=== PATIENT | female | born 1990 | race Caucasian/White ===

== ENCOUNTER 2020-04-26 17:38 | Inpatient (IN) ==
[2020-04-26 18:20] VITALS: O2SAT 99
[2020-04-26 18:34] LABS: Basophils # (auto) 0.02 K/uL (0-0.2); Basophils % (auto) 0.3 %; Eosinophils # (auto) 0.09 K/uL (0-0.5); Eosinophils % (auto) 1.4 %; Hematocrit (blood only) 40.7 % (37-47); Hemoglobin 13.6 g/dL (12.0-16.0); Immature Granulocytes # (auto) 0.01 K/uL (0.00-0.02); Immature Granulocytes % (auto) 0.2 %; Lymphocytes # (auto) 1.85 K/uL (1.2-3.4); Lymphocytes % (auto) 28.7 %; Mean Corpuscular Hgb Conc 33.4 g/dL (32-36); Mean Corpuscular Volume 89.6 fL (80-100); Mean Platelet Volume 10.6 fL (7.4-10.4); Monocytes # (auto) 0.35 K/uL (0.11-0.59); Monocytes % (auto) 5.4 %; Neutrophils # (auto) 4.12 K/uL (1.4-6.5); Platelet Count 206 K/uL (130-400); RDW Coefficient of Variation 12.5 % (11.5-14.5); Red Blood Count 4.54 M/uL (4.2-5.4); White Blood Count 6.44 K/uL (4.8-10.8)
[2020-04-26 18:59] LABS: Albumin Level 3.9 gm/dl (3.4-5.0); Calcium 8.9 mg/dl (8.5-10.1); Est GFR (African American) 92.1; Est GFR (Non-African American) 79.5; Potassium 3.7 mmol/L (3.5-5.1)
[2020-04-26 19:08] LABS: Acetaminophen < 2 ug/ml (10-30); Salicylate < 1.7 mg/dl (2.8-20)
[2020-04-26 19:09] LABS: Albumin Globulin Ratio 1.1 (0.9-2); Bilirubin,Total 1.7 mg/dl (0.2-1); Globulin 3.6 gm/dl (2.5-4.0); Thyroid Stimulating Hormone 0.3 uIu/ml (0.300-4.500); Total Protein 7.5 gm/dl (6.4-8.2)
[2020-04-26 19:32] LABS: Appearance Urine Cloudy (Clear); Bacteria Urine Automated 1+ (Negative); Blood Urine Negative (Negative); Color Urine Dark Yellow; Epithelial Cell Urine Auto >30 /lpf (0-5); Glucose Urine UA Negative (Negative); Ketones Urine 2+ (Negative); Leukocyte Esterase Urine 2+ (Negative); Nitrite Urine Negative (Negative); Protein Urine Trace (Negative); RBC Urine Automated >30 /hpf (0-4); Specific Gravity Urine 1.034 (1.000-1.030); Urobilinogen Urine Negative (Negative)
[2020-04-26 19:38] LABS: Bilirubin Urine 1+ (Negative)
--- NOTE | 2020-04-26 19:43 | Emergency Department Note ---
History of Present Illness General Chief complaint: Mental Health Evaluation Stated complaint: MHID Time Seen by Provider: 04/26/20 18:11 History of Present Illness Provider complaint: Mental health evaluation Onset (ago): day(s) 1 29-year-old female presents emergency department for mental health evaluation. Patient states she got into a verbal argument with her girlfriend today and then her girlfriend called the authorities concerned about her wellbeing. Patient denies any physical abuse/assault or sexual abuse/assault. She states that her girlfriend called the police and she was "fake crying". Patient denies any suicidal or homicidal ideation. She states she does not know why her girlfriend called the police on her. She denies any difficulty sleeping, loss of interest, changes in energy level, changes in concentration, or changes in the appetite. She does report yelling guilty about being in a relationship with this girlfriend. She has reported history of bipolar depression anxiety which she is on Lamictal and Lexapro for and she states she has not missed any doses. Home Medications Home Medications Medication Instructions Recorded Confirmed Type escitalopram oxalate 20 mg PO DAILY 04/26/20 04/26/20 History lamotrigine 100 mg PO DAILY 04/26/20 04/26/20 History Allergies Allergy/AdvReac Type Severity Reaction Status Date / Time No Known Allergies Allergy Unverified 04/26/20 18:41 Past Med/Surg History Medical History (Updated 04/27/20 @ 01:10 by Donis Sutton) Anxiety Bipolar depression No pertinent family history Surgical History (Updated 04/26/20 @ 19:43 by Donis Sutton) No pertinent past surgical history Social History Smoking Status: Current every day smoker Feels Safe at Home: Yes Review of Systems A total of 10 systems reviewed and were otherwise negative Physical Exam Vital Signs Vital Signs - 24 hr 04/26/20 18:06 04/26/20 20:54 Temperature 37 C Temperature Source Oral Pulse Rate 101 H Pulse Rate [Right Finger] 101 H 88 Respiratory Rate 18 20 Respiratory Effort / Characteristics Non-Labored Spontaneous Non-Labored Respiratory Depth Normal Normal Respiratory Pattern Regular Blood Pressure 158/91 H Blood Pressure [Right Arm] 158/91 H 140/85 Blood Pressure Mean 113 Blood Pressure Mean [Right Arm] 113 103 Pulse Oximetry 99 99 Oxygen Delivery Method Room Air Room Air Sepsis Recent Fever Within 48 Hours No Sepsis New/Unexplained Change in Mental Status No Sepsis Action Taken by Nursing No Action Required Physical Exam GENERAL: She is oriented to person, place, and time. She appears well-developed and well-nourished. She does not appear distressed. HENT: Exam performed. -Head: Normocephalic and atraumatic. -Right Ear: External ear normal. No mastoid tenderness. -Left Ear: External ear normal. No mastoid tenderness. -Mouth/Throat: The oropharynx is clear and moist. No trismus in the jaw. No dental abscesses or uvula swelling. No oropharyngeal exudate or tonsillar abscesses. EYES: Conjunctivae and EOM are normal. Pupils are equal, round, and reactive to light. Right eye exhibits no discharge. Left eye exhibits no discharge. No scleral icterus. NECK: Normal range of motion. Neck supple. No JVD present. No spinous process tenderness present. No carotid bruit present. No rigidity. No tracheal deviation and normal range of motion present. No Brudzinski's sign and no Kernig's sign noted. CV: Normal rate, regular rhythm, normal heart sounds and intact distal pulses. There is no peripheral edema. Palpable radial pulses bue. PULM/CHEST: Effort normal and breath sounds normal. No respiratory distress. No stridor. She has no wheezes. She has no rales. -Chest Wall: She exhibits no tenderness. ABD: The abdomen is soft. Bowel sounds are normal. She has no distension. No mass is present. There is no tenderness. There is no rebound, no guarding, no Paz's sign and no tenderness at McBurney's point. Rovsig negative MUSC/SKEL: Normal range of motion. There is no peripheral edema, tenderness or deformity. LYMPH: No cervical adenopathy. NEURO: She is alert and oriented to person, place, and time. She has normal strength. No cranial nerve deficit or sensory deficit. Coordination and gait normal. GCS eye subscore is 4. GCS verbal subscore is 5. GCS motor subscore is 6. Cerebellar tests wnl. SKIN: Skin is warm and dry. She is not diaphoretic. PSYCH: She has a normal mood and affect. Behavior is normal. Judgment and thought content normal. Course Course 183: The patient was evaluated in room A7. A complete history and physical exam was performed. 2020: Vital signs stable. Patient medically cleared. Psychiatric hydraulic technician Sophia was able to obtain the text messages that the patient sent to the girlfriend and they are quite alarming talking about killing herself. Patient does have a history of previous suicide attempt by trying to shoot herself to . Based off of this information that was not provided by the patient initially, both psychiatric casework and I recommend that the patient seek inpatient treatment. Patient placed in observation at this time as bed search is being conducted. Medical Decision Making Laboratory Data Result diagrams: 04/26/20 18:19 04/26/20 18:19 Lab Results 04/26/20 04/26/20 04/26/20 Range/Units 18:19 18:19 18:19 WBC 6.44 (4.8-10.8) K/uL RBC 4.54 (4.2-5.4) M/uL Hgb 13.6 (12.0-16.0) g/dL Hct 40.7 (37-47) % MCV 89.6 (80-100) fL MCH 30.0 (25-34) pg MCHC 33.4 (32-36) g/dL RDW Std Deviation 41.0 (36.4-46.3) fL RDW Coeff of Mariela 12.5 (11.5-14.5) % Plt Count 206 (130-400) K/uL MPV 10.6 H (7.4-10.4) fL Immature Gran % (Auto) 0.2 % Neut % (Auto) 64.0 % Lymph % (Auto) 28.7 % Bath % (Auto) 5.4 % Eos % (Auto) 1.4 % Baso % (Auto) 0.3 % Neut # (Auto) 4.12 (1.4-6.5) K/uL Lymph # (Auto) 1.85 (1.2-3.4) K/uL Bath # (Auto) 0.35 (0.11-0.59) K/uL Eos # (Auto) 0.09 (0-0.5) K/uL Baso # (Auto) 0.02 (0-0.2) K/uL Immature Gran # (Auto) 0.01 (0.00-0.02) K/uL Sodium 138 (136-145) mmol/L Potassium 3.7 (3.5-5.1) mmol/L Chloride 106 (98-107) mmol/L Carbon Dioxide 27 (21-32) mmol/L Anion Gap 5.0 (3-11) BUN 9 (7-18) mg/dl Creatinine 0.97 (0.6-1.2) mg/dl Est Cr Clr Drug Dosing 68.0 ml/min Est GFR ( Amer) 92.1 Est GFR (Non-Af Amer) 79.5 BUN/Creatinine Ratio 9.0 L (10-20) Glucose 135 H (70-99) mg/dl Calcium 8.9 (8.5-10.1) mg/dl Total Bilirubin 1.7 H (0.2-1) mg/dl AST 15 (15-37) U/L ALT 17 (12-78) U/L Alkaline Phosphatase 43 L (45-117) U/L Total Protein 7.5 (6.4-8.2) gm/dl Albumin 3.9 (3.4-5.0) gm/dl Globulin 3.6 (2.5-4.0) gm/dl Albumin/Globulin Ratio 1.1 (0.9-2) TSH 0.300 (0.300-4.500) uIu/ml Urine Color Urine Appearance (Clear) Urine pH (4.5-7.5) Ur Specific [place] (1.000-1.030) Urine Protein (Negative) Urine Glucose (UA) (Negative) Urine Ketones (Negative) Urine Blood (Negative) Urine Nitrite (Negative) Urine Bilirubin (Negative) Urine Urobilinogen (Negative) Ur Leukocyte Esterase (Negative) Urine WBC (Auto) (0-5) /hpf Urine RBC (Auto) (0-4) /hpf U Hyaline Cast (Auto) (0-5) /lpf U Epithel Cells (Auto) (0-5) /lpf Urine Bacteria (Auto) (Negative) Ur Renal Epithelial Cell (0-5) /lpf Urine Mucus (None Prsent) Urine Test (Negative) Salicylates < 1.7 L (2.8-20) mg/dl Urine Opiates Screen (Neg) Ur Methadone, Qual (Neg) Acetaminophen < 2 L (10-30) ug/ml Urine Barbiturates (Neg) Ur Phencyclidine (PCP) (Neg) U Amphetamin/Meth Scrn (Neg) MDMA (Ecstasy) Screen (Neg) U Benzodiazepines Scrn (Neg) Ur Cocaine Metabolite (Neg) U Marijuana (THC) Screen (Neg) Ethyl Alcohol mg/dL (0-3) mg/dl 04/26/20 04/26/20 04/26/20 Range/Units 18:19 19:14 19:14 WBC (4.8-10.8) K/uL RBC (4.2-5.4) M/uL Hgb (12.0-16.0) g/dL Hct (37-47) % MCV (80-100) fL MCH (25-34) pg MCHC (32-36) g/dL RDW Std Deviation (36.4-46.3) fL RDW Coeff of Mariela (11.5-14.5) % Plt Count (130-400) K/uL MPV (7.4-10.4) fL Immature Gran % (Auto) % Neut % (Auto) % Lymph % (Auto) % Bath % (Auto) % Eos % (Auto) % Baso % (Auto) % Neut # (Auto) (1.4-6.5) K/uL Lymph # (Auto) (1.2-3.4) K/uL Bath # (Auto) (0.11-0.59) K/uL Eos # (Auto) (0-0.5) K/uL Baso # (Auto) (0-0.2) K/uL Immature Gran # (Auto) (0.00-0.02) K/uL Sodium (136-145) mmol/L Potassium (3.5-5.1) mmol/L Chloride (98-107) mmol/L Carbon Dioxide (21-32) mmol/L Anion Gap (3-11) BUN (7-18) mg/dl Creatinine (0.6-1.2) mg/dl Est Cr Clr Drug Dosing ml/min Est GFR ( Amer) Est GFR (Non-Af Amer) BUN/Creatinine Ratio (10-20) Glucose (70-99) mg/dl Calcium (8.5-10.1) mg/dl Total Bilirubin (0.2-1) mg/dl AST (15-37) U/L ALT (12-78) U/L Alkaline Phosphatase (45-117) U/L Total Protein (6.4-8.2) gm/dl Albumin (3.4-5.0) gm/dl Globulin (2.5-4.0) gm/dl Albumin/Globulin Ratio (0.9-2) TSH (0.300-4.500) uIu/ml Urine Color Dark Yellow Urine Appearance Cloudy A (Clear) Urine pH 5.0 (4.5-7.5) Ur Specific [place] 1.034 H (1.000-1.030) Urine Protein Trace H (Negative) Urine Glucose (UA) Negative (Negative) Urine Ketones 2+ H (Negative) Urine Blood Negative (Negative) Urine Nitrite Negative (Negative) Urine Bilirubin 1+ H (Negative) Urine Urobilinogen Negative (Negative) Ur Leukocyte Esterase 2+ H (Negative) Urine WBC (Auto) 5-10 H (0-5) /hpf Urine RBC (Auto) >30 H (0-4) /hpf U Hyaline Cast (Auto) 0 (0-5) /lpf U Epithel Cells (Auto) >30 H (0-5) /lpf Urine Bacteria (Auto) 1+ H (Negative) Ur Renal Epithelial Cell 0-5 (0-5) /lpf Urine Mucus Present A (None Prsent) Urine Test (Negative) Salicylates (2.8-20) mg/dl Urine Opiates Screen Neg (Neg) Ur Methadone, Qual Neg (Neg) Acetaminophen (10-30) ug/ml Urine Barbiturates Neg (Neg) Ur Phencyclidine (PCP) Neg (Neg) U Amphetamin/Meth Scrn Pos H (Neg) MDMA (Ecstasy) Screen Pos H (Neg) U Benzodiazepines Scrn Neg (Neg) Ur Cocaine Metabolite Neg (Neg) U Marijuana (THC) Screen Pos H (Neg) Ethyl Alcohol mg/dL < 3.0 (0-3) mg/dl 04/26/20 Range/Units 19:14 WBC (4.8-10.8) K/uL RBC (4.2-5.4) M/uL Hgb (12.0-16.0) g/dL Hct (37-47) % MCV (80-100) fL MCH (25-34) pg MCHC (32-36) g/dL RDW Std Deviation (36.4-46.3) fL RDW Coeff of Mariela (11.5-14.5) % Plt Count (130-400) K/uL MPV (7.4-10.4) fL Immature Gran % (Auto) % Neut % (Auto) % Lymph % (Auto) % Bath % (Auto) % Eos % (Auto) % Baso % (Auto) % Neut # (Auto) (1.4-6.5) K/uL Lymph # (Auto) (1.2-3.4) K/uL Bath # (Auto) (0.11-0.59) K/uL Eos # (Auto) (0-0.5) K/uL Baso # (Auto) (0-0.2) K/uL Immature Gran # (Auto) (0.00-0.02) K/uL Sodium (136-145) mmol/L Potassium (3.5-5.1) mmol/L Chloride (98-107) mmol/L Carbon Dioxide (21-32) mmol/L Anion Gap (3-11) BUN (7-18) mg/dl Creatinine (0.6-1.2) mg/dl Est Cr Clr Drug Dosing ml/min Est GFR ( Amer) Est GFR (Non-Af Amer) BUN/Creatinine Ratio (10-20) Glucose (70-99) mg/dl Calcium (8.5-10.1) mg/dl Total Bilirubin (0.2-1) mg/dl AST (15-37) U/L ALT (12-78) U/L Alkaline Phosphatase (45-117) U/L Total Protein (6.4-8.2) gm/dl Albumin (3.4-5.0) gm/dl Globulin (2.5-4.0) gm/dl Albumin/Globulin Ratio (0.9-2) TSH (0.300-4.500) uIu/ml Urine Color Urine Appearance (Clear) Urine pH (4.5-7.5) Ur Specific [place] (1.000-1.030) Urine Protein (Negative) Urine Glucose (UA) (Negative) Urine Ketones (Negative) Urine Blood (Negative) Urine Nitrite (Negative) Urine Bilirubin (Negative) Urine Urobilinogen (Negative) Ur Leukocyte Esterase (Negative) Urine WBC (Auto) (0-5) /hpf Urine RBC (Auto) (0-4) /hpf U Hyaline Cast (Auto) (0-5) /lpf U Epithel Cells (Auto) (0-5) /lpf Urine Bacteria (Auto) (Negative) Ur Renal Epithelial Cell (0-5) /lpf Urine Mucus (None Prsent) Urine Test Negative (Negative) Salicylates (2.8-20) mg/dl Urine Opiates Screen (Neg) Ur Methadone, Qual (Neg) Acetaminophen (10-30) ug/ml Urine Barbiturates (Neg) Ur Phencyclidine (PCP) (Neg) U Amphetamin/Meth Scrn (Neg) MDMA (Ecstasy) Screen (Neg) U Benzodiazepines Scrn (Neg) Ur Cocaine Metabolite (Neg) U Marijuana (THC) Screen (Neg) Ethyl Alcohol mg/dL (0-3) mg/dl MDM Narrative Observation note Indication: Psych eval/placement Patient, with bipolar disorder with depression, anxiety was first seen at 1830 hrs and the observation time began at 2019 and was necessary in order to have psych evaluation completed . Upon re-evaluation, 4 hours 48 minutes of observation revealed that the patient should be admitted to inpatient psychiatry. Disposition date and time April 27 2020 010. Impression & Plan Bipolar depression, Suicidal ideation Discharge Plan Visit Data Chief Complaint: Mental Health Evaluation Stated Complaint: MHID ED Provider: Donis Sutton Discharge Problem: Bipolar depression, Suicidal ideation Patient Disposition: Admitted As Inpatient Forms Stand Alone Forms: [facility], Suicide Prevention Resources Prescriptions Prescriptions: No Action escitalopram oxalate 20 mg PO DAILY RF: 0 lamotrigine 100 mg PO DAILY RF: 0 Referrals Referrals: PCP,NO [Primary Care Provider] -
[2020-04-26 19:52] LABS: Cast Urine Automated 0 /lpf (0-5); Mucus Urine Present (None Prsent); Renal Epithelial Cells Urine 0-5 /lpf (0-5)
[2020-04-26 20:26] LABS: Amphetamines+Metham, Urine Pos (Neg); Barbiturates, Urine Neg (Neg); Benzodiazepine, Urine Neg (Neg); Cocaine, Urine Neg (Neg); MDMA (Ecstacy), Urine Pos (Neg); Methadone, Urine Neg (Neg); Opiate, Urine Neg (Neg); Phencyclidine, Urine Neg (Neg)
[2020-04-26 23:58] LABS: Pregnancy Test, Urine Negative (Negative)
[2020-04-27] MEDS ORDERED: SODIUM CHLORIDE 0.65% NA SOLN 45 ML (OCEAN) PRN (00:51)
[2020-04-27] MEDS ORDERED: ALUMINUM/MAGNESIUM SUSP 30 ML UDC PO PRN (00:51)
[2020-04-27] MEDS ORDERED: ACETAMINOPHEN 325 MG TAB PO PRN (00:51)
[2020-04-27] MEDS ORDERED: BISMUTH SUBSALICYLATE PER ML OMNICELL CHARGE PO PRN (00:51)
[2020-04-27] MEDS ORDERED: MAGNESIUM HYDROXIDE SUSP 30 ML UDC PO PRN (00:51)
[2020-04-27] MEDS: ESCITALOPRAM OXALATE 20 MG TAB PO SCH (10:29)
[2020-04-27] MEDS: lamoTRIgine 100 MG TAB PO SCH (10:29)
[2020-04-27] MEDS: NICOTINE 21 MG/24 HR TDSY TD SCH (14:51)
--- NOTE | 2020-04-27 16:16 | History & Physical ---
Date of Service April 27, 2020 Impression / Recommendations Impression The patient is a 29-year-old woman who has a long history of mood alterations. Her current outpatient diagnosis is bipolar disorder. She does not give a particularly strong history of manic or hypomanic episodes, but she does report that she often has difficulty regulating her mood, particularly when under stress. The history is more suggestive of discrete depressive episodes, possibly complicated by borderline personality traits. The patient made direct threats of suicide yesterday in the form of text messages that we have been able to review through screen captures. The patient acknowledges that she had made these threats, but says that she made them only as a function of a combination of her disappointment and hurt about being rejected by her former girlfriend, and, also, because she was angry. Complicating the clinical picture is the fact that the patient did make a very serious suicide attempt in 2010 by shooting herself in the chest. That attempt was related to a romantic disappointment, a nd the fact of the serious suicide attempt under similar circumstances, combined as it was with a written threat of suicide indicates that, till she can be more fully assessed, inpatient psychiatric hospitalization remains the least intensive, least restrictive level of care consistent with the patient's safety and clinical needs. The patient, herself, while not happy about being in the hospital, acknowledges that our concern is entirely reasonable. She will be continued on her outpatient psychiatric medications. The patient agrees that she will work on improving her individual coping strategies during what we expect will be a brief psychiatric hospitalization, with an emphasis on finding better ways to communicate hurt, disappointment, and anger and than making what she now is claiming more disingenuous threats of suicide. The patient's mother is currently planning to drive to [place] on Thursday and, if the patient's condition remains stable and she continues to be free of reported suicidal thoughts, and if her affect remains euthymic. The plan will be to discharge the patient on Thursday (day 3 of the hospitalization) under the care of her mother who will assist her in getting back to her family in [facility]. (1) Bipolar depression: 04/27 -The patient has been admitted to the [facility] inpatient psychiatric behavioral health unit at [facility]. She is being monitored on suicide precautions and close observations. -She has been referred to and is actively in group, activity, and family interventions. Her primary goal in treatment at the current time is to acquire improved skills for expressing anger, disappointment, and hurt when feeling rejected, abandoned, or not well treated. She acknowledges that threatening suicide under such circumstances may be "an easy thing to do," but that it is a behavior that can understandably unjustifiably because alarm and other persons, particularly within the context of her history of having made a very serious suicide attempt by shooting herself in the chest 9 years ago. -We are continuing the patient's outpatient psychiatric medications, namely partida otrigine 100 mg daily and Lexapro 20 mg daily. The patient reports that she tolerates these medications well and feels that they help her substantially with her effort to keep her mood stable and free of depression. Present on Admission?: Yes (2) Suicidal ideation: 04/27 -The patient does note that she sometimes has fleeting suicidal thoughts that occur when she is feeling under stress, for example when feeling mistreated, when feeling abandoned, or when feeling rejected. However, she has been consistently denying any actual suicidal plan or intent since arriving in the [facility] emergency department. -Particular caution is being exercised in this case because the patient has a history of having made a very serious suicide attempt. Specifically, in 2010, under somewhat similar circumstances to the current situation, she shot herself in the chest (admittedly with a certain amount of ambivalence) following a romantic disappointment. -We will continue to monitor the patient for suicidality, with particular emphasis and observing affect and appropriate participation in therapies. The patient is currently iam for safety on the unit. Inventory Assets Strengths: Her condition. Commitment to ongoing psychiatric treatment. Medication adherence. Strongly supportive family. Needs: Improved individual coping strategies. Patient has set as her goal for the hospitalization and effort to find appropriate ways of expressing anger, hurt, and disappointment. She acknowledges that she has found threatening suicide to be a way of quickly communicating to others that they have greatly distressed her, but she also knows that she needs to find much more suitable ways of expressing herself when distressed. Risk Factors Assessment History of very serious, often lethal suicide attempt in the past. Mood disorder. Longstanding difficulty regulating her moods. 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 She has a history of bipolar disorder was admitted on 04/27/20 00:51 on a 302 involuntary commitment after she texted her former girlfriend and made direct threats of suicide. Chief Complaint " I do have depression, and may be bipolar disorder. But I am not currently depressed, and I was not really suicidal.". History of Present Illness The patient is a 29-year-old woman who is currently living in [facility] [place] with her parents. She notes that she has a history of mood alterations, primarily intermittent depression. However, she also notes that she has had periods of time during which her mood has been "maybe a little bit to up and too [energetic]." She reports that she had been doing well on the combination of Lexapro for depression, and lamotrigine for mood stabilization on an outpatient basis. Against the advice of her family, and, she put it, against her better judgment, she decided yesterday to drive from the [facility] to [place] in order to visit her former girlfriend, at the former girlfriend's invitation. According to the patient, shortly after she arrived for the visit the former girlfriend told her the patient that she, the former girlfriend, wanted the patient to cut her visit short and to leave on "Thursday" (i.e., today). The explanation given was that the girlfriend had developed "other plans" for the weekend and they did not involve the patient. Quite understandably, this was distressing to the patient given the fact that the girlfriend had, in fact issued the invitation. They had an escalating argument that was continued, least in part, through text message. The patient reports that in order to "get away"" off she decided to go shopping. When she exited the store she found police standing by her car and they told her that there had been a petition for a mental health check. The patient denied that she was actually suicidal, but could not deny that she had made direct threats of suicide in writing the form of the text message. The relevant text message has been screen captured and forwarded to the police by the patient's former girlfriend. The former girlfriend may or may not have also claimed that the patient took some of the former girlfriend's belongings, and the patient convincingly states that if that allegation was made it was certainly not true. She was evaluated in the emergency room, and although she continued to deny that she was actually suicidal, the fact remains that the suicide threats had been made in writing and, further, the patient has a history of having made a very serious suicide attempt in 2010 by shooting herself in the chest while depressed about a romantic disappointment. The patient freely acknowledges that she had made a suicide attempt by shooting herself, although she was so ambivalent about it that she was shaking and the gun discharge in such a fashion that it missed all vital organs and, instead, penetrated her her left shoulder. She stated that, at the time, she was not aware of why her emotions were so strong and so poorly regulated and did not realize that emotional distress can past and be treated. The patient has it subsequent to the suicide attempt she has consistently stayed in treatment and has had no more suicide attempts. She also says that she did truly did not have suicidal intent when she texted her former girlfriend on the day of admission, but acknowledge making the threat out of a combination of anger and hurt feelings. The patient confides that she had had secret hopes that she and her former girlfriend would be able to reconcile because she continues to have fairly strong feelings for the girlfriend, and she was badly hurt when the former girlfriend asked her to leave not long after she had arrived. The patient agrees to remain in the hospital for the next day or so in order to further process what happened and who work on developing strategies for expressing her feelings effectively and without resorting to threats of suicide. With the patient's permission, the patient's mother at [facility] has been contacted, and the mother is willing to drive to the [facility] in order to assist the patient. The patient's car is located locally, and if all goes well the expectations the patient will be discharged on Thursday, at which point the patient's mother will assist her in collecting her car and then the 2 will follow each other back to their home in [facility]. Past Psychiatric History Previous Psych History: Patient reports that she began having significant mood alterations during childhood and became aware of the degree to which they were interfering with her functioning around the time she was a senior in high school. She made a very serious suicide attempt by shooting herself in the chest (fortunately, she was so ambivalent that she ended up shooting herself in the shoulder) following a romantic disappointment. Subsequently, she entered treatment for depression, was later diagnosed with bipolar disorder because of some symptoms suggestive of hypomania, and responded favorably to a combination of mood stabilizer (currently lamotrigine) and Lexapro. The patient reports that under stress, and particularly when feeling abandoned or otherwise distressed she does sometimes have fleeting thoughts of suicide, but she insists that she now has insight into why she has these feelings and thoughts and does not have associated suicidal intent. Current Psychiatric Diagnosis: Bipolar Depression Outpatient Services: The patient is currently in outpatient treat with a psychiatrist and a therapist Previous Psych Admissions: in [facility]. Do You Have Access To A Gun?: No History of Previous Suicide Attempt: Yes Describe Attempts in the Past: 11 years ago - shot self Past Medication Trials: Patient indicates that she has tried several psychiatric medications, but has remained stable on a combination of lamotrigine as a mood stabilizer and Lexapro as an antidepressant/antianxiety agent. Past Head Trauma/Neuro History History of Concussion/Seizure: No Allergies Allergy/AdvReac Type Severity Reaction Status Date / Time No Known Allergies Allergy Unverified 04/26/20 18:41 Home Medications Home Medications Medication Instructions Recorded Confirmed Type escitalopram oxalate 20 mg PO DAILY 04/26/20 04/26/20 History lamotrigine 100 mg PO DAILY 04/26/20 04/26/20 History Family History Family History of: None Alcohol History Hx of Alcohol Use Over the Past 12 Months: No Smoking Use tobacco type: cigarettes Smoking Status: Current every day smoker Substance History Hx of Prescription Med Misuse Over the Past 12 Months: No Hx of Over the Counter Med Misuse Over the Past 12 Months: No Hx of Inhalent Misuse Over the Past 12 Months: No Hx of Organic Substance Use Over the Past 12 Months: Yes (Marijuana - every night before bed) Hx of Illegal Substances/Street Drug Use Over Past 12 Months: No Problems as a Result of Past Substance Use: None Identified Personal History Living Arrangements: Home Living Arrangements Comments: Lives with parents. She reports that her parents are loving and supportive. 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 In addition, the somatic history, review of systems, and physical examination completed by Donis Sutton yesterday in the emergency department has been reviewed and is excepted for purposes of medical admission to the behavioral health unit. Physical Exam Psychiatric: Orientation: alert, oriented x 3 and cooperative Apperance: appropriately dressed, appropriately groomed and appeared stated age Eye Contact: good eye contact Motor Behavior: steady gait and station and no abnormal motor movements Speech: normal rate/rhythm/volume of speech Affect: euthymic affect The patient teared up appropriately when describing her disappointment about the outcome of what she hoped would be a romantic weekend that, sadly, ended up in an argument with her former girlfriend and psychiatric hospitalization. "I will think I am depressed. I am said and may be a little angry about what happened with my former girlfriend. Everybody warned me to not try to see her again because she is trouble. So I guess I am kind of embarrassed, too." Thought Process: goal directed thought process, linear/logical thought process and clear/coherent thought process Thought Content: reality based without delusions Suicidal Thoughts: denies suicidal plan The patient denies current suicidal thoughts. She does admit that she intermittently has suicidal thoughts when feeling rejected, abandoned, or while under other forms of stress. Homicidal Thoughts: denies homicidal thoughts Hallucinations: no auditory hallucinations and no visual hallucinations Cognition: recent memory grossly intact, remote memory grossly intact, attention grossly intact and language grossly intact Estimated Intelligence: average estimated intelligence Insight: + fair insight Judgement: + poor judgement The patient is able to acknowledge that she exercised very poor judgment in making a written suicide threat in a text message that she sent to a woman who she knows has a history of regularly using the police as a way of resolving disagreements with other people. Patient also was able to understand that part of everyone's concern has to do with the fact that under similar circumstances, approximately 9 years ago, she intentionally shot herself in the chest. She is able to understand that we feel we need to observe her for another day or two in order to assure that she is emotionally stable and able to make reentry into the community successfully. Vital Signs (Past 24 Hours): Last Vital Signs Temp 36.5 C 04/27/20 06:32 Pulse 99 H 04/27/20 06:32 Resp 18 04/27/20 06:32 BP 113/76 04/27/20 06:32 Pulse Ox 99 04/27/20 01:43 Results & Data ([facility]) Laboratory Results Laboratory Results - last 24 hr 04/26/20 04/26/20 04/26/20 18:19 18:19 18:19 WBC 6.44 RBC 4.54 Hgb 13.6 Hct 40.7 MCV 89.6 MCH 30.0 MCHC 33.4 RDW Std Deviation 41.0 RDW Coeff of Mariela 12.5 Plt Count 206 MPV 10.6 H Immature Gran % (Auto) 0.2 Neut % (Auto) 64.0 Lymph % (Auto) 28.7 [place] % (Auto) 5.4 Eos % (Auto) 1.4 Baso % (Auto) 0.3 Neut # (Auto) 4.12 Lymph # (Auto) 1.85 [place] # (Auto) 0.35 Eos # (Auto) 0.09 Baso # (Auto) 0.02 Immature Gran # (Auto) 0.01 Sodium 138 Potassium 3.7 Chloride 106 Carbon Dioxide 27 Anion Gap 5.0 BUN 9 Creatinine 0.97 Est Cr Clr Drug Dosing 68.0 Est GFR ( Amer) 92.1 Est GFR (Non-Af Amer) 79.5 BUN/Creatinine Ratio 9.0 L Glucose 135 H Calcium 8.9 Total Bilirubin 1.7 H AST 15 ALT 17 Alkaline Phosphatase 43 L Total Protein 7.5 Albumin 3.9 Globulin 3.6 Albumin/Globulin Ratio 1.1 TSH 0.300 Urine Color Urine Appearance Urine pH Ur Specific [place] Urine Protein Urine Glucose (UA) Urine Ketones Urine Blood Urine Nitrite Urine Bilirubin Urine Urobilinogen Ur Leukocyte Esterase Urine WBC (Auto) Urine RBC (Auto) U Hyaline Cast (Auto) U Epithel Cells (Auto) Urine Bacteria (Auto) Ur Renal Epithelial Cell Urine Mucus Urine Test Salicylates < 1.7 L Urine Opiates Screen Ur Methadone, Qual Acetaminophen < 2 L Urine Barbiturates Ur Phencyclidine (PCP) U Amphetamines Confirm U Amphetamin/Meth Scrn U Methamphetamin Confrm Urine MDEA MDMA (Ecstasy) Screen MDMA Urine MDMA U Benzodiazepines Scrn Ur Cocaine Metabolite U Marijuana (THC) Screen U Marijuana THC Carboxy Drug Screen Comment Ethyl Alcohol mg/dL 04/26/20 04/26/20 04/26/20 18:19 19:14 19:14 WBC RBC Hgb Hct MCV MCH MCHC RDW Std Deviation RDW Coeff of Mariela Plt Count MPV Immature Gran % (Auto) Neut % (Auto) Lymph % (Auto) [place] % (Auto) Eos % (Auto) Baso % (Auto) Neut # (Auto) Lymph # (Auto) [place] # (Auto) Eos # (Auto) Baso # (Auto) Immature Gran # (Auto) Sodium Potassium Chloride Carbon Dioxide Anion Gap BUN Creatinine Est Cr Clr Drug Dosing Est GFR ( Amer) Est GFR (Non-Af Amer) BUN/Creatinine Ratio Glucose Calcium Total Bilirubin AST ALT Alkaline Phosphatase Total Protein Albumin Globulin Albumin/Globulin Ratio TSH Urine Color Dark Yellow Urine Appearance Cloudy A Urine pH 5.0 Ur Specific [place] 1.034 H Urine Protein Trace H Urine Glucose (UA) Negative Urine Ketones 2+ H Urine Blood Negative Urine Nitrite Negative Urine Bilirubin 1+ H Urine Urobilinogen Negative Ur Leukocyte Esterase 2+ H Urine WBC (Auto) 5-10 H Urine RBC (Auto) >30 H U Hyaline Cast (Auto) 0 U Epithel Cells (Auto) >30 H Urine Bacteria (Auto) 1+ H Ur Renal Epithelial Cell 0-5 Urine Mucus Present A Urine Test Salicylates Urine Opiates Screen Neg Ur Methadone, Qual Neg Acetaminophen Urine Barbiturates Neg Ur Phencyclidine (PCP) Neg U Amphetamines Confirm U Amphetamin/Meth Scrn Pos H U Methamphetamin Confrm Urine MDEA MDMA (Ecstasy) Screen Pos H MDMA Urine MDMA U Benzodiazepines Scrn Neg Ur Cocaine Metabolite Neg U Marijuana (THC) Screen Pos H U Marijuana THC Carboxy Drug Screen Comment Ethyl Alcohol mg/dL < 3.0 04/26/20 04/26/20 19:14 19:14 WBC RBC Hgb Hct MCV MCH MCHC RDW Std Deviation RDW Coeff of Mariela Plt Count MPV Immature Gran % (Auto) Neut % (Auto) Lymph % (Auto) [place] % (Auto) Eos % (Auto) Baso % (Auto) Neut # (Auto) Lymph # (Auto) [place] # (Auto) Eos # (Auto) Baso # (Auto) Immature Gran # (Auto) Sodium Potassium Chloride Carbon Dioxide Anion Gap BUN Creatinine Est Cr Clr Drug Dosing Est GFR ( Amer) Est GFR (Non-Af Amer) BUN/Creatinine Ratio Glucose Calcium Total Bilirubin AST ALT Alkaline Phosphatase Total Protein Albumin Globulin Albumin/Globulin Ratio TSH Urine Color Urine Appearance Urine pH Ur Specific [place] Urine Protein Urine Glucose (UA) Urine Ketones Urine Blood Urine Nitrite Urine Bilirubin Urine Urobilinogen Ur Leukocyte Esterase Urine WBC (Auto) Urine RBC (Auto) U Hyaline Cast (Auto) U Epithel Cells (Auto) Urine Bacteria (Auto) Ur Renal Epithelial Cell Urine Mucus Urine Test Negative Salicylates Urine Opiates Screen Ur Methadone, Qual Acetaminophen Urine Barbiturates Ur Phencyclidine (PCP) U Amphetamines Confirm Pending U Amphetamin/Meth Scrn U Methamphetamin Confrm Pending Urine MDEA Pending MDMA (Ecstasy) Screen MDMA Pending Urine MDMA Pending U Benzodiazepines Scrn Ur Cocaine Metabolite U Marijuana (THC) Screen U Marijuana THC Carboxy Pending Drug Screen Comment Pending Ethyl Alcohol mg/dL Current Inpatient Medications Current Inpatient Medications: Current Inpatient Medications Acetaminophen (Tylenol) 650 mg PO Q4H PRN PRN Reason: Headache or Minor Fever Stop: 05/27/20 00:50 Al Hydrox/Mg Hydrox/Simethicone (Maalox) 30 ml PO Q4H PRN PRN Reason: GI Upset Stop: 05/27/20 00:50 Bismuth Subsalicylate (Kaopectate) 15 ml PO PRN PRN PRN Reason: Loose Stool Stop: 05/27/20 00:50 Escitalopram Oxalate (Lexapro Tab) 20 mg PO [facility] Stop: 05/27/20 08:59 Last Admin: 04/27/20 10:29 Dose: 20 mg Documented by: Hydroxyzine HCl (Vistaril) 50 mg PO HSZ PRN PRN Reason: Insomnia Stop: 05/27/20 00:50 Hydroxyzine HCl (Vistaril) 25 mg PO Q4H PRN PRN Reason: Anxiety Stop: 05/27/20 00:50 Lamotrigine (Lamictal) 100 mg PO [facility] Stop: 05/27/20 08:59 Last Admin: 04/27/20 10:29 Dose: 100 mg Documented by: Magnesium Hydroxide (Milk Of Magnesia) 30 ml PO DAILY PRN PRN Reason: Constipation Stop: 05/27/20 00:50 Miscellaneous (Remove Nicoderm Patch) 1 ea N/A [id number] [facility] Stop: 05/27/20 08:58 Last Admin: 04/27/20 14:51 Dose: Not Given Documented by: Nicotine (Nicoderm Cq) 21 mg TD [facility] Stop: 05/27/20 08:59 Last Admin: 04/27/20 14:51 Dose: Not Given Documented by: Sodium Chloride ([place] Nasal) 1 - 2 sprays NA PRN PRN PRN Reason: Nasal Dryness/Congestion Stop: 05/27/20 00:50
[2020-04-27] MEDS ORDERED: NICOTINE POLACRILEX 2 MG GUM MT PRN (20:14)
[2020-04-27] MEDS ORDERED: ONDANSETRON 2 MG OD TAB PO PRN (20:31)
--- NOTE | 2020-04-28 08:58 | Psychiatric Progress Note ---
Date of Service April 28, 2020 Impression / Recommendations Impression Admission Assessment Impression: The patient is a 29-year-old woman who has a long history of mood alterations. Her current outpatient diagnosis is bipolar disorder. She does not give a particularly strong history of manic or hypomanic episodes, but she does report that she often has difficulty regulating her mood, particularly when under stress. The history is more suggestive of discrete depressive episodes, possibly complicated by borderline personality traits. The patient made direct threats of suicide yesterday in the form of text messages that we have been able to review through screen captures. The patient acknowledges that she had made these threats, but says that she made them only as a function of a combination of her disappointment and hurt about being rejected by her former girlfriend, and, also, because she was angry. Complicating the clinical picture is the fact that the patient did make a very serious suicide attempt in 2010 by shooting herself in the chest. That attempt was related to a romantic disappointment, and the fact of the serious suicide attempt under similar circumstances, combined as it was with a written threat of suicide indicates that, till she can be more fully assessed, inpatient psychiatric hospitalization remains the least intensive, least restrictive level of care consistent with the patient's safety and clinical needs. The patient, herself, while not happy about being in the hospital, acknowledges that our concern is entirely reasonable. She will be continued on her outpatient psychiatric medications. The patient agrees that she will work on improving her individual coping strategies during what we expect will be a brief psychiatric hospitalization, with an emphasis on finding better ways to communicate hurt, disappointment, and anger and than making what she now is claiming more disingenuous threats of suicide. The patient's mother is currently planning to drive to [place] on Thursday and, if the patient's condition remains stable and she continues to be free of reported suicidal thoughts, and if her affect remains euthymic. The plan will be to discharge the patient on Thursday (day 3 of the hospitalization) under the care of her mother who will assist her in getting back to her family in [facility]. (1) Suicidal ideation: 04/27 -The patient does note that she sometimes has fleeting suicidal thoughts that occur when she is feeling under stress, for example when feeling mistreated, when feeling abandoned, or when feeling rejected. However, she has been co nsistently denying any actual suicidal plan or intent since arriving in the [facility] emergency department. -Particular caution is being exercised in this case because the patient has a history of having made a very serious suicide attempt. Specifically, in 2010, under somewhat similar circumstances to the current situation, she shot herself in the chest (admittedly with a certain amount of ambivalence) following a romantic disappointment. -We will continue to monitor the patient for suicidality, with particular emphasis and observing affect and appropriate participation in therapies. The patient is currently iam for safety on the unit. 04/28 - Pt is denying SI today - Tolerated family support meeting with mother today - Anticipate discharge tomorrow morning (2) Bipolar depression: 04/27 -The patient has been admitted to the locked inpatient psychiatric behavioral health unit at [facility]. She is being monitored on suicide precautions and close observations. -She has been referred to and is actively in group, activity, and family interventions. Her primary goal in treatment at the current time is to acquire improved skills for expressing anger, disappointment, and hurt when feeling rejected, abandoned, or not well treated. She acknowledges that threatening suicide under such circumstances may be "an easy thing to do," but that it is a behavior that can understandably unjustifiably because alarm and other persons, particularly within the context of her history of having made a very serious suicide attempt by shooting herself in the chest 9 years ago. -We are continuing the patient's outpatient psychiatric medications, namely lamotrigine 100 mg daily and Lexapro 20 mg daily. The patient reports that she tolerates these medications well and feels that they help her substantially with her effort to keep her mood stable and free of depression. 04/28 - Continue current medication regimen - escitalopram 20mg and lamotrigine 100mg - Pt has been attending group and recreational programming, occasionally observed to be isolating in her room when reporting increased anxiety - Family support meeting with mother this afternoon to discuss discharge and safety planning - Anticipate discharge tomorrow morning/afternoon (3) Opiate abuse, episodic: 04/28 - Report perceived withdrawal symptoms to staff. States opiate use was sporadic prior to admission. No significant abnormalities in vital signs. Will treat symptomatically at this time for restlessness/anxiety and nausea. Pt has also been using behavioral strategies to improve comfort. - Pt states she is planning to resume appointments for MAT through an office she was previously treated at in [facility] Strengths: Her condition. Commitment to ongoing psychiatric treatment. Medication adherence. Strongly supportive family. Needs: Improved individual coping strategies. Patient has set as her goal for the hospitalization and effort to find appropriate ways of expressing anger, hurt, and disappointment. She acknowledges that she has found threatening suicide to be a way of quickly communicating to others that they have greatly di stressed her, but she also knows that she needs to find much more suitable ways of expressing herself when distressed. 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 She has a history of bipolar disorder was admitted on 04/27/20 00:51 on a 302 involuntary commitment after she texted her former girlfriend and made direct threats of suicide. Chief Complaint "Um, I'm doing ok." Review of Systems Notes Constitutional: reports restlessness patient believes to be related to withdrawal Cardiovascular: denied Respiratory: denied Gastrointestinal: reports intermittent nausea Neurological: denied Psychiatric: denies symptoms other than stated above Total of at least 10 systems reviewed, pertinent positives as above and in HPI. Sleep Information Total Hours of Sleep: 8.5 Meal Information Percent Meal Consumed - Breakfast: 0 Percent Meal Consumed - Lunch: 50 Percent Meal Consumed - Dinner: 70 Subjective Subjective Patient was seen & assessed and interval progress reviewed with nursing and social work. Staff report the patient has been somewhat isolative, reporting last evening that she believes she is experiencing symptoms of opiate withdrawa l. Otherwise, the patient has been cooperative and pleasant. Pt was seen today to assess progress since admission. Pt states that she had a phone meeting with her mother this afternoon and believes it went well. Pt shares "I have a therapy appointment scheduled now, that was kind of the last thing we needed." Pt states her mood has been rather stable since admission and denies feeling that medication adjustments are necessary. Pt denies SI at this time. She states she has been benefitting from her admission, but feels she will be ready for discharge tomorrow. Pt denies other needs or concerns today. Physical Exam Psychiatric Orientation: alert, oriented x 3 and cooperative Apperance: appropriately dressed, appropriately groomed and appeared stated age Casually dressed in hoodie and scrub pants. Short hair is appropriately groomed and styled. Wearing corrective lenses. Eye Contact: good eye contact Motor Behavior: no abnormal motor movements (observed while sitting on couch) Speech: normal rate/rhythm/volume of speech (somewhat brief responses to questions) Affect: + blunted affect (appearing somewhat subdued) Mood: no depressed mood ("I'm fine") Thought Process: goal directed thought process, clear/coherent thought process and thought association intact Thought Content: reality based without delusions; no hopelessness and no worthlessness Suicidal Thoughts: denies suicidal thoughts, denies suicidal plan and denies suicidal intent Homicidal Thoughts: denies homicidal thoughts Hallucinations: no auditory hallucinations and no visual hallucinations Cognition: recent memory grossly intact, attention grossly intact and language grossly intact Estimated Intelligence: consistent with education level Insight: + fair insight Judgement: + fair judgement Vital Signs (Past 24 Hours) Last Vital Signs Temp 36.7 C 04/28/20 06:26 Pulse 100 H 04/28/20 06:29 Resp 16 04/28/20 06:26 BP 127/89 04/28/20 06:29 Pulse Ox 99 04/27/20 01:43 Results & Data ([facility]) Current Inpatient Medications Current Inpatient Medications: Current Inpatient Medications Acetaminophen (Tylenol) 650 mg PO Q4H PRN PRN Reason: Headache or Minor Fever Stop: 05/27/20 00:50 Al Hydrox/Mg Hydrox/Simethicone (Maalox) 30 ml PO Q4H PRN PRN Reason: GI Upset Stop: 05/27/20 00:50 Bismuth Subsalicylate (Kaopectate) 15 ml PO PRN PRN PRN Reason: Loose Stool Stop: 05/27/20 00:50 Escitalopram Oxalate (Lexapro Tab) 20 mg PO QAM [facility] Stop: 05/27/20 08:59 Last Admin: 04/27/20 10:29 Dose: 20 mg Documented by: Hydroxyzine HCl (Vistaril) 50 mg PO HSZ PRN PRN Reason: Insomnia Stop: 05/27/20 00:50 Last Admin: 04/28/20 00:27 Dose: 50 mg Documented by: Hydroxyzine HCl (Vistaril) 25 mg PO Q4H PRN PRN Reason: Anxiety Stop: 05/27/20 00:50 Lamotrigine (Lamictal) 100 mg PO QAM [facility] Stop: 05/27/20 08:59 Last Admin: 04/27/20 10:29 Dose: 100 mg Documented by: Magnesium Hydroxide (Milk Of Magnesia) 30 ml PO DAILY PRN PRN Reason: Constipation Stop: 05/27/20 00:50 Miscellaneous (Remove Nicoderm Patch) 1 ea N/A DAILY@0859 [facility] Stop: 05/27/20 08:58 Last Admin: 04/27/20 14:51 Dose: Not Given Documented by: Nicotine (Nicoderm Cq) 21 mg TD QAM [facility] Stop: 05/27/20 08:59 Last Admin: 04/27/20 14:51 Dose: Not Given Documented by: Nicotine Polacrilex (Nicorette 2mg) 1 piece MT PRN PRN PRN Reason: Cravings Stop: 05/27/20 20:13 Ondansetron HCl (Zofran Odt) 6 mg PO Q6H PRN PRN Reason: Nausea Stop: 05/27/20 20:30 Sodium Chloride ([place] Nasal) 1 - 2 sprays NA PRN PRN PRN Reason: Nasal Dryness/Congestion Stop: 05/27/20 00:50 Mental Health & Subst Abuse Tx Psychiatrist Name of Psychiatrist: Katerina Encarnacion/[facility] Psychiatrist's Date of Appointment with Psychiatrist: 05/09/20 Time of Appointment with Psychiatrist: 1:30pm Psychiatric Appointment Comment: this appointment will be via phone Therapist Name of Therapist: Katerina Cain/[facility] Therapist's Date of Therapist Appointment: 05/02/20 Time of Therapist Appointment: 10am Therapy Appointment Comment: via phone, she will call you. (office [address] [facility]) Cattle Feeder Name of Cattle Feeder: [facility] Phone Number for Cattle Feeder: [phone] Case Management Appointment Comment: referral started, casemanager will call you when assigned Post Discharge Appointments Primary Care Physician Name Of Family Doctor: Dr. Bustos Primary Care Provider Appointment Comment: As needed, [address] [place] [address] Contact Information Discharge Discharge Address: [address] [place] [id number]
[2020-04-28] MEDS: ESCITALOPRAM OXALATE 20 MG TAB PO SCH (09:22)
[2020-04-28] MEDS: lamoTRIgine 100 MG TAB PO SCH (09:22)
[2020-04-28] MEDS: NICOTINE 21 MG/24 HR TDSY TD SCH ×2 (09:23→10:27)
[2020-04-29 06:33] VITALS: BP 104/69; TEMP 97.7
[2020-04-29] MEDS: lamoTRIgine 100 MG TAB PO SCH (08:57)
[2020-04-29] MEDS: ESCITALOPRAM OXALATE 20 MG TAB PO SCH (08:57)
[2020-04-29] MEDS: NICOTINE 21 MG/24 HR TDSY TD SCH (08:58)
--- NOTE | 2020-04-29 09:33 | Discharge Summary ---
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 In the event of worsening symptoms or concerns about side effects, contact your doctor immediately. 3. Utilize new healthy coping skills, anger management skills, and stress management skills learned during your hospitalization. Journal feelings and process them with a support person. Identify stressors or situations that may result in relapse, deterioration or inappropriate behaviors and develop a plan to deal with those issues. 4. If your coping skills are ineffective and you are in crisis, contact your outpatient providers for direction. If unable to reach your providers, please call the CAN HELP LINE AT or go to the closest Emergency Room. 5. Avoid alcohol and un-prescribed drugs. 6. You have been provided with the Mental Health Advance Directives Pamphlet for your review. AFTERCARE APPOINTMENTS: * Please call your insurance company prior to your scheduled appointment to confirm your aftercare providers are covered. Take your insurance information to your appointments. WHO TO CALL AND WHEN: Medical Emergencies: For questions or emergencies related to your hospital stay, please contact the Inpatient Behavioral Health Unit at [phone]. A cardio clinician is on-call 27/04 for the Behavioral Health Unit for emergencies At any time you feel your situation is an emergency, you may also call 911 immediately. Your Discharge Instructions noted above were prepared by provider Nellie Aleman PA-C. Pending Studies at Discharge: No Stand-Alone Forms: [facility], Smoking Cessation, Suicide Prevention Resources Medications and DC Order Prescriptions: Continued escitalopram oxalate 20 mg PO DAILY RF: 0 lamotrigine 100 mg PO DAILY RF: 0 Discharge Orders: Discharge Order (Routine); Ordered 04/29/20 Ordered By: Nellie Costello/Other Patient Handouts: Suicide Warning Signs Self Admission Data Admit Date/Time: 04/27/20 00:51 Attending Provider: Flash Hobbs Admit Provider: Lew Vance I. Primary Care Provider: PCP,NO Other Interventions: Discharge Summary Assessment (RN) Last Done: 04/29/20 10:48 PSY Interdisciplinary Discharge Planning Last Done: 04/29/20 10:48 DC Date/Time DO NOT enter until pt leaves facility: 07/26/20 12:30 Coding Level of Care Code 88862 D/C day mgmt > 30 min Diagnoses Suicidal ideation R45.851 Bipolar depression F31.9 Opiate abuse, episodic F11.10
[2020-04-29 10:51] VITALS: PULSE 37
[2020-05-02 09:08] LABS: Amphetamine Urine, Confirm 8500 ng/mL (<250); MDA negative; MDEA negative; MDMA (Ecstasy) Urine, Confirm negative; Marijuana Quant, GCMS Urine 400 ng/mL (<5); Methamphetamine, Ur Confirm >15000 ng/mL (<250)
== END 2020-04-29 12:30 | disposition home or self-care (01) | DRG 885 ==
LOC: ED 17:38 → 3S 04-27 00:51